=== PATIENT | male | born 1990 | race Caucasian/White ===

== ENCOUNTER 2021-06-01 16:24 | Emergency (ER) | payer OTHER ==
[~2021-06-01] VITALS: Ht 193 cm; Wt 83.9 kg
[~2021-06-01 16:24] MED LIST: CEPH500 PO; CIPR500 PO; METR500 PO; Naprosyn500 MG PO; OMEP40CA12 PO; Phenergan25 M1 PO; Ultram50 MG PO; Veetids 500500 MG PO
[2021-06-01] MEDS ORDERED: Norco 5-325 Ta1 EACH PO (18:28)
[2021-06-01] MEDS ORDERED: CEPH500 PO (18:28)
== END 2021-06-01 18:51 | disposition home or self-care (01) ==
LOC: ER 16:24
DX: S62.633B Displaced fracture of distal phalanx of left middle finger, initial encounter for open fracture (principal); F17.210 Nicotine dependence, cigarettes, uncomplicated; W23.0XXA Caught, crushed, jammed, or pinched between moving objects, initial encounter
CPT/HCPCS: 12001; 73140; 96374-59; 99282-25; A9270; J0690

== ENCOUNTER 2025-04-08 06:59 | Emergency (ER) | payer OTHER ==
[~2025-04-08] VITALS: Ht 193 cm; Wt 75.0 kg
[~2025-04-08 06:59] MED LIST changes: +Norco 5-325 Ta1 EACH PO
[2025-04-08] MEDS ORDERED: PARO10 PO (07:16)
[2025-04-08] MEDS ORDERED: NS 1,000 ML IV SCH ×2 (07:20→08:55)
[2025-04-08] MEDS ORDERED: Ondansetron HCl 2 MG / ML 2ML Vial IV ONE (07:20)
[2025-04-08] MEDS ORDERED: Atropine/Scopalam/Hyoscam/PB 5 ML UDC PO ONE (07:40)
[2025-04-08] MEDS ORDERED: Lidocaine 2% Viscous Soln 15 ML UDC PO ONE (07:40)
[2025-04-08 07:43] LABS: Hemoglobin 19.3 g/dL (13.5-17.5); Mean Corpuscular HGB Conc 34.8 g/dL (31.5-36.5); Mean Corpuscular Volume 79 fL (80-100); NRBC ABSOLUTE 0.00 K/mm3 (0.00-0.02); NRBC Auto 0.0 /100 WBC (0.0-0.2); Platelet Count 201 K/mm3 (150-400); RDW Coefficient Variation 14.6 % (11.7-14.2); RDW Standard Deviation 40.0 fL (35.1-46.3)
[2025-04-08 07:46] LABS: Hematocrit 55.5 % (37.0-53.0)
[2025-04-08 08:03] LABS: BAND PERCENT MAN 17 % (0-8); BASOPHILS ABSOLUTE MAN 0.00 K/mm3 (0.00-0.23); BASOPHILS PERCENT MAN 0 % (0-2); EOSINOPHILS ABSOLUTE MAN 0.00 K/mm3 (0.00-0.68); EOSINOPHILS PERCENT MAN 0 % (0-6); LYMPHOCYTES ABSOLUTE MAN 0.78 K/mm3 (0.84-5.20); LYMPHOCYTES PERCENT MAN 13 % (21-46); MONOCYTES ABSOLUTE MAN 0.42 K/mm3 (0.16-1.47); MONOCYTES PERCENT MAN 7 % (4-13); NEUTROPHILS ABSOLUTE MAN 4.85 K/mm3 (1.96-9.15); SEG NEUTROPHILS PERCENT MAN 63 % (41-73)
[2025-04-08 08:04] LABS: Alanine Aminotransfer (ALT/SGP 32.0 U/L (12-78); Albumin, Blood 3.7 g/dL (3.4-5.0); Albumin/Globulin Ratio 0.8 (0.8-1.8); Anion Gap 15.0 mmol/L (3-11); Aspartate Aminotrans (AST/SGOT 44.0 U/L (12-37); Bilirubin, Total 0.8 mg/dL (0.1-1.0); Blood Urea Nitrogen 16.0 mg/dL (8-24); CO2, Blood 23.0 mmol/L (21-32); Calcium, Blood 8.9 mg/dL (8.5-10.1); Chloride, Blood 98.0 mmol/L (98-108); Creatinine, Blood 0.94 mg/dL (0.60-1.20); Globulin, Blood 4.8 g/dL (2.2-4.0); Glucose, Blood 142.0 mg/dL (70-99); Potassium, Blood 2.8 mmol/L (3.5-5.5); Sodium, Blood 133.0 mmol/L (136-145); Total Protein, Blood 8.5 g/dL (6.4-8.2)
[2025-04-08 09:04] LABS: Influenza A/2009-H1 Not Detected (NOT DETECT); SARS-Cov-2 (COVID-19), BioFire Not Detected (NOT DETECT)
[2025-04-08 09:08] LABS: Source, Urine Clean Catch
[2025-04-08 09:11] LABS: Bilirubin, Urine Neg (Neg); Color, Urine Yellow (P-Yellow); Glucose Qualitative, Urine Neg (Neg); Ketones, Urine Neg (Neg); Leukocyte Esterase, Urine Neg (Neg); Protein, Urine 2+ (Neg); Specific Gravity, Urine 1.025 (1.003-1.022); Urobilinogen, Urine NORM (Normal)
[2025-04-08 09:24] LABS: Red Blood Cells, Urine 0-2 /hpf (0-2); White Blood Cells, Urine 0-2 /hpf (0-5)
[2025-04-08 09:33] LABS: U Amphetamine Screen Not Detected; U Barbituate Screen Not Detected; U Benzodiazapine Screen Not Detected; U Buprenorphine Screen Not Detected; U Cannabinoids Screen DETECTED; U Cocaine Screen Not Detected; U Methadone Screen Not Detected; U Methamphetamine Screen Not Detected; U Opiates Screen Not Detected; U Oxycodone Screen Not Detected; U Phencyclidine Screen Not Detected
[2025-04-08] MEDS ORDERED: Haloperidol Lactate Inj. 5 MG/ML Injection IV ONE (09:50)
[2025-04-08 13:51] LABS: Campylobacter Sp Not Detected (NOT DETECT); E. Coli O157 Not Detected (NOT DETECT); Enteroaggregative E. coli-EAEC Not Detected (NOT DETECT); Enteropathogenic E. coli-EPEC Not Detected (NOT DETECT); Enterotoxigenic E. coli-ETEC Not Detected (NOT DETECT); Salmonella Sp Not Detected (NOT DETECT); Shiga Toxin-prod E. coli-STEC Not Detected (NOT DETECT); Shigella/Enteroin E. coli-EIEC Not Detected (NOT DETECT); Vibrio Sp Not Detected (NOT DETECT)
[2025-04-08 13:55] LABS: Anion Gap 11.0 mmol/L (3-11); Blood Urea Nitrogen 14.0 mg/dL (8-24); CO2, Blood 19.0 mmol/L (21-32); Calcium, Blood 8.1 mg/dL (8.5-10.1); Chloride, Blood 106.0 mmol/L (98-108); Creatinine, Blood 0.49 mg/dL (0.60-1.20); Glucose, Blood 124.0 mg/dL (70-99); Potassium, Blood 3.4 mmol/L (3.5-5.5); Sodium, Blood 133.0 mmol/L (136-145)
[2025-04-08] MEDS ORDERED: ONDA4ODT MM (14:03)
[2025-04-08] MEDS ORDERED: ALINIA PO (14:03)
[2025-04-08 14:08] VITALS: BP 141/75
[2025-04-08] MEDS ORDERED: PRED20 PO (14:32)
[2025-04-08] MEDS ORDERED: K-TAB ER20 ME1 PO (14:32)
== END 2025-04-08 14:58 | disposition home or self-care (01) ==
LOC: ER 06:59
DX: A07.2 Cryptosporidiosis (principal); E86.0 Dehydration; E87.6 Hypokalemia; F17.210 Nicotine dependence, cigarettes, uncomplicated; Z79.899 Other long term (current) drug therapy
CPT/HCPCS: 0202U; 74177; 80048; 80053; 81001; 83690; 85025; 87507; 93005; 93010; A9270; J1630; J2405; J3480; J7030; J7050; Q9967

== ENCOUNTER 2025-04-10 17:02 | Inpatient (IN) | payer OTHER ==
[~2025-04-10] VITALS: Ht 193 cm; Wt 74.6 kg
[~2025-04-10 17:02] MED LIST changes: +ALINIA PO; +K-TAB ER20 ME1 PO; +ONDA4ODT MM; +PARO10 PO; +PRED20 PO
[2025-04-10] MEDS ORDERED: NS 1,000 ML IV SCH ×2 (17:30→20:20)
[2025-04-10] MEDS ORDERED: Pantoprazole Sodium 40 MG Injection IV ONE (19:00)
[2025-04-10] MEDS ORDERED: DiphenhydrAMINE HCl 50 MG/ML 1ML Vial IV ONE (19:05)
[2025-04-10] MEDS ORDERED: NS 1,000 ML BAG IR SCH (19:05)
[2025-04-10 19:34] LABS: Alanine Aminotransfer (ALT/SGP 23.0 U/L (12-78); Albumin, Blood 3.4 g/dL (3.4-5.0); Albumin/Globulin Ratio 0.8 (0.8-1.8); Anion Gap 12.0 mmol/L (3-11); Aspartate Aminotrans (AST/SGOT 28.0 U/L (12-37); Bilirubin, Total 1.0 mg/dL (0.1-1.0); Blood Urea Nitrogen 17.0 mg/dL (8-24); CO2, Blood 18.0 mmol/L (21-32); Calcium, Blood 8.5 mg/dL (8.5-10.1); Chloride, Blood 106.0 mmol/L (98-108); Creatinine, Blood 0.79 mg/dL (0.60-1.20); Globulin, Blood 4.3 g/dL (2.2-4.0); Glucose, Blood 139.0 mg/dL (70-99); Potassium, Blood 3.0 mmol/L (3.5-5.5); Sodium, Blood 133.0 mmol/L (136-145); Total Protein, Blood 7.7 g/dL (6.4-8.2)
[2025-04-10 19:52] LABS: Hematocrit 53.6 % (37.0-53.0); Hemoglobin 18.7 g/dL (13.5-17.5); Mean Corpuscular HGB Conc 34.9 g/dL (31.5-36.5); Mean Corpuscular Volume 77 fL (80-100); NRBC ABSOLUTE 0.16 K/mm3 (0.00-0.02); NRBC Auto 1.4 /100 WBC (0.0-0.2); RDW Coefficient Variation 14.9 % (11.7-14.2); RDW Standard Deviation 39.2 fL (35.1-46.3)
[2025-04-10] MEDS ORDERED: Potassium Chl 10MEQ/Water100ML 100 ML IV SCH (19:55)
[2025-04-10] MEDS ORDERED: Prochlorperazine Edisylate 10 mg Vial IV ONE (20:00)
[2025-04-10 20:02] LABS: pH Blood Venous 7.37 (7.34-7.37)
[2025-04-10 20:03] LABS: BAND PERCENT MAN 16 % (0-8); BASOPHILS ABSOLUTE MAN 0.00 K/mm3 (0.00-0.23); BASOPHILS PERCENT MAN 0 % (0-2); EOSINOPHILS ABSOLUTE MAN 0.00 K/mm3 (0.00-0.68); EOSINOPHILS PERCENT MAN 0 % (0-6); LYMPHOCYTES ABSOLUTE MAN 0.79 K/mm3 (0.84-5.20); LYMPHOCYTES PERCENT MAN 7 % (21-46); MONOCYTES ABSOLUTE MAN 1.47 K/mm3 (0.16-1.47); MONOCYTES PERCENT MAN 13 % (4-13); NEUTROPHILS ABSOLUTE MAN 9.05 K/mm3 (1.96-9.15); SEG NEUTROPHILS PERCENT MAN 64 % (41-73)
[2025-04-10 20:06] LABS: Platelet Count 209 K/mm3 (150-400)
[2025-04-10] MEDS ORDERED: Ondansetron HCl 2 MG / ML 2ML Vial IV PRN (23:30)
[2025-04-11] VITALS (7 sets, daily range): BP systolic 127–153; BP diastolic 63–78
--- NOTE | 2025-04-11 04:41 | NUR ---
NIGHT SUMMARY: PT ADMITTED FROM ER FOR SUPPORTIVE TREATMENT. PT DENIES NAUSEA OR VOMITING THIS SHIFT. IV FLUIDS RUNNING AND ON CLEAR LIQUID DIET. ABLE TO PROGRESS TO REGULAR APPROPRIATE. TOLERATING JUICE AND BROTH. K REPLACED IN ER. STILL HAVING DIARRHEA. SBA IN ROOM. ABLE TO CALL APPROPRIATELY, CALL LIGHT WITHIN REACH, AND BED IN LOW POSITION.
[2025-04-11 05:11] LABS: Hematocrit 45.1 % (37.0-53.0); Hemoglobin 16.0 g/dL (13.5-17.5); Mean Corpuscular HGB Conc 35.5 g/dL (31.5-36.5); Mean Corpuscular Volume 79 fL (80-100); NRBC ABSOLUTE 0.00 K/mm3 (0.00-0.02); NRBC Auto 0.0 /100 WBC (0.0-0.2); Platelet Count 210 K/mm3 (150-400); RDW Coefficient Variation 14.2 % (11.7-14.2); RDW Standard Deviation 40.4 fL (35.1-46.3)
[2025-04-11 05:35] LABS: BAND PERCENT MAN 18 % (0-8); BASOPHILS ABSOLUTE MAN 0.00 K/mm3 (0.00-0.23); BASOPHILS PERCENT MAN 0 % (0-2); EOSINOPHILS ABSOLUTE MAN 0.23 K/mm3 (0.00-0.68); EOSINOPHILS PERCENT MAN 2 % (0-6); LYMPHOCYTES ABSOLUTE MAN 0.81 K/mm3 (0.84-5.20); LYMPHOCYTES PERCENT MAN 7 % (21-46); MONOCYTES ABSOLUTE MAN 2.56 K/mm3 (0.16-1.47); MONOCYTES PERCENT MAN 22 % (4-13); NEUTROPHILS ABSOLUTE MAN 8.05 K/mm3 (1.96-9.15); SEG NEUTROPHILS PERCENT MAN 51 % (41-73)
[2025-04-11 05:45] LABS: Alanine Aminotransfer (ALT/SGP 19.0 U/L (12-78); Albumin, Blood 2.7 g/dL (3.4-5.0); Albumin/Globulin Ratio 0.8 (0.8-1.8); Anion Gap 9.0 mmol/L (3-11); Aspartate Aminotrans (AST/SGOT 26.0 U/L (12-37); Bilirubin, Total 0.7 mg/dL (0.1-1.0); Blood Urea Nitrogen 12.0 mg/dL (8-24); CO2, Blood 21.0 mmol/L (21-32); Calcium, Blood 7.9 mg/dL (8.5-10.1); Chloride, Blood 109.0 mmol/L (98-108); Creatinine, Blood 0.65 mg/dL (0.60-1.20); Globulin, Blood 3.5 g/dL (2.2-4.0); Glucose, Blood 113.0 mg/dL (70-99); Potassium, Blood 3.1 mmol/L (3.5-5.5); Sodium, Blood 136.0 mmol/L (136-145); Total Protein, Blood 6.2 g/dL (6.4-8.2)
[2025-04-11] MEDS ORDERED: Potassium Chl 20MEQ/Water100ML 100 ML IV SCH ×2 (06:35→17:05)
[2025-04-11] MEDS ORDERED: NS 250 ML IV PRN (07:40)
[2025-04-11] MEDS ORDERED: NEOM500 PO (07:50)
[2025-04-11] MEDS ORDERED: Enoxaparin 40 MG/0.4 ML SYR SC SCH (09:00)
--- NOTE | 2025-04-11 15:07 | NUR ---
SUMMARY PT CONTINUES TO HAVE LOOSE STOOLS, THAT HAVE DECREASED IN FREQUENCY. WAS ABLE TO TOLERATE CLEAR LIQUIDS AT BREAKFAST, ADVANCED TO SOFT BITE SIZE AT LUNCH PER DR. DORAN. IV POTASSIUM REPLETED TODAY 60 MEQ TOTAL. IV INFUSION OF LR CONTINUING AT 125 ML/HR PER ORDERS. PT UP INDEPENDENTLY IN ROOM. NSR ON TELE, WITH NO TELE EVENTS. PRN ZOFRAN GIVEN PRIOR TO LUNCH FOR MILD NAUSEA, BUT NO VOMITING.
[2025-04-11 16:18] LABS: Anion Gap 7.0 mmol/L (3-11); Blood Urea Nitrogen 11.0 mg/dL (8-24); CO2, Blood 22.0 mmol/L (21-32); Calcium, Blood 8.1 mg/dL (8.5-10.1); Chloride, Blood 108.0 mmol/L (98-108); Creatinine, Blood 0.63 mg/dL (0.60-1.20); Glucose, Blood 98.0 mg/dL (70-99); Potassium, Blood 3.0 mmol/L (3.5-5.5); Sodium, Blood 134.0 mmol/L (136-145)
[2025-04-11 19:27] LABS: Alanine Aminotransfer (ALT/SGP 20.0 U/L (12-78); Albumin, Blood 2.7 g/dL (3.4-5.0); Albumin/Globulin Ratio 0.8 (0.8-1.8); Anion Gap 2.0 mmol/L (3-11); Aspartate Aminotrans (AST/SGOT 29.0 U/L (12-37); Bilirubin, Total 0.8 mg/dL (0.1-1.0); Blood Urea Nitrogen 11.0 mg/dL (8-24); CO2, Blood 22.0 mmol/L (21-32); Calcium, Blood 8.1 mg/dL (8.5-10.1); Chloride, Blood 109.0 mmol/L (98-108); Creatinine, Blood 0.64 mg/dL (0.60-1.20); Globulin, Blood 3.4 g/dL (2.2-4.0); Glucose, Blood 92.0 mg/dL (70-99); Potassium, Blood 2.9 mmol/L (3.5-5.5); Sodium, Blood 130.0 mmol/L (136-145); Total Protein, Blood 6.1 g/dL (6.4-8.2)
[2025-04-12 02:24] LABS: Hematocrit 44.1 % (37.0-53.0); Hemoglobin 15.5 g/dL (13.5-17.5); Mean Corpuscular HGB Conc 35.1 g/dL (31.5-36.5); Mean Corpuscular Volume 80 fL (80-100); NRBC ABSOLUTE 0.00 K/mm3 (0.00-0.02); NRBC Auto 0.0 /100 WBC (0.0-0.2); Platelet Count 251 K/mm3 (150-400); RDW Coefficient Variation 14.5 % (11.7-14.2); RDW Standard Deviation 41.9 fL (35.1-46.3)
[2025-04-12 02:41] LABS: Magnesium, Blood 1.7 mg/dL (1.6-2.4)
[2025-04-12 02:52] LABS: Anion Gap 8.0 mmol/L (3-11); Blood Urea Nitrogen 10.0 mg/dL (8-24); CO2, Blood 22.0 mmol/L (21-32); Calcium, Blood 7.7 mg/dL (8.5-10.1); Chloride, Blood 110.0 mmol/L (98-108); Creatinine, Blood 0.68 mg/dL (0.60-1.20); Glucose, Blood 98.0 mg/dL (70-99); Phosphorus, Blood 0.9 mg/dL (2.5-4.9); Potassium, Blood 3.5 mmol/L (3.5-5.5); Sodium, Blood 136.0 mmol/L (136-145)
--- NOTE | 2025-04-12 02:55 | NUR ---
ACRITICAL PPO4 NOTED BY LAB AND CONVEYED TO . AWAITING ORDERS
[2025-04-12 03:16] LABS: BAND PERCENT MAN 12 % (0-8); BASOPHILS ABSOLUTE MAN 0.00 K/mm3 (0.00-0.23); BASOPHILS PERCENT MAN 0 % (0-2); EOSINOPHILS ABSOLUTE MAN 0.18 K/mm3 (0.00-0.68); EOSINOPHILS PERCENT MAN 2 % (0-6); LYMPHOCYTES % ATYPICAL MANUAL 1 % (0-0); LYMPHOCYTES ABSOLUTE MAN 1.68 K/mm3 (0.84-5.20); LYMPHOCYTES PERCENT MAN 17 % (21-46); METAMYELOCYTE ABSOLUTE MAN 0.09 K/mm3 (0.00-0.00); METAMYELOCYTE PERCENT MAN 1 % (0-0); MONOCYTES ABSOLUTE MAN 1.02 K/mm3 (0.16-1.47); MONOCYTES PERCENT MAN 11 % (4-13); MYELOCYTE ABSOLUTE MAN 0.09 K/mm3 (0.00-0.00); MYELOCYTE PERCENT MAN 1 % (0-0); NEUTROPHILS ABSOLUTE MAN 6.25 K/mm3 (1.96-9.15); SEG NEUTROPHILS PERCENT MAN 55 % (41-73)
[2025-04-12] MEDS ORDERED: Potassium Phosphate Dibasic 30 MM in Dextrose 5% 500 ML IV ONE (03:30)
[2025-04-12 03:43] VITALS: BP 119/67
--- NOTE | 2025-04-12 05:06 | NUR ---
PT A&O X4, VS WNL, REMAINS ON TELE IN NSR IN 70'S. PT WITH ABOVE AVERAGE STOOL OUTPUT. TOLERATES A SOFT DIET, HAS HAD ELECTROLYTE DEPLETION WITH IVPB REPLACEMENT OF POTASSIUM AND PHOSPHORUS THIS SHIFT. USES CALL SYSTEM APPROPRIATELY, AND STARTED FLUID RESTRICTION AT MIDNIGHT. PLAN TO D/C HOME WITH .
[2025-04-12] MEDS ORDERED: Magnesium Sulf 2 GM/Water 50ML 50 ML IV ONE (06:25)
[2025-04-12 07:26] VITALS: BP 119/82
[2025-04-12] MEDS ORDERED: Potassium Phos/Sodium Phos 250 MG PACK PO SCH (08:00)
[2025-04-12] MEDS ORDERED: TIZA4 PO ×2 (08:21)
[2025-04-12] MEDS ORDERED: Sodium Phosphate 20 MM in Dextrose 5% 500 ML IV SCH (09:00)
[2025-04-12 09:45] LABS: Alanine Aminotransfer (ALT/SGP 18.0 U/L (12-78); Albumin, Blood 2.7 g/dL (3.4-5.0); Albumin/Globulin Ratio 0.8 (0.8-1.8); Anion Gap 8.0 mmol/L (3-11); Aspartate Aminotrans (AST/SGOT 22.0 U/L (12-37); Bilirubin, Total 0.6 mg/dL (0.1-1.0); Blood Urea Nitrogen 8.0 mg/dL (8-24); CO2, Blood 21.0 mmol/L (21-32); Calcium, Blood 7.6 mg/dL (8.5-10.1); Chloride, Blood 108.0 mmol/L (98-108); Creatinine, Blood 0.52 mg/dL (0.60-1.20); Globulin, Blood 3.2 g/dL (2.2-4.0); Glucose, Blood 110.0 mg/dL (70-99); Magnesium, Blood 2.5 mg/dL (1.6-2.4); Phosphorus, Blood 2.6 mg/dL (2.5-4.9); Potassium, Blood 3.2 mmol/L (3.5-5.5); Sodium, Blood 134.0 mmol/L (136-145); Total Protein, Blood 5.9 g/dL (6.4-8.2)
[2025-04-12 11:43] VITALS: BP 135/68
[2025-04-12 12:51] LABS: Anion Gap 8.0 mmol/L (3-11); Blood Urea Nitrogen 8.0 mg/dL (8-24); CO2, Blood 21.0 mmol/L (21-32); Calcium, Blood 7.9 mg/dL (8.5-10.1); Chloride, Blood 108.0 mmol/L (98-108); Creatinine, Blood 0.51 mg/dL (0.60-1.20); Glucose, Blood 111.0 mg/dL (70-99); Potassium, Blood 2.9 mmol/L (3.5-5.5); Sodium, Blood 134.0 mmol/L (136-145)
[2025-04-12] MEDS ORDERED: ONDA4 PO (15:30)
[2025-04-12] MEDS ORDERED: POTCHL20ER PO ×2 (15:37)
[2025-04-12 15:46] VITALS: BP 143/67
[2025-04-12] MEDS ORDERED: PHOS-NaK PO ×2 (16:05)
--- NOTE | 2025-04-12 16:42 | NUR ---
DISCHARGE NOTE: A&OX4 PRIOR TO D/C. PT EDUCATION AND INSTRUCTIONS COMMUNICATED WITH PT. IVs AND TELE REMOVED. PT GATHERED PERSONAL BELONGINGS AND GOT SELF DRESSED TO LEAVE WITH ASSISTANCE FROM HIS SPOUSE. DENIED STAFF ESCORT AND AMBULATED SELF OUT OF BUILDING. VSS PRIOR TO LEAVING. MEDICATIONS FAXED TO PT PREFERED PHARMACY.
[2025-04-12 19:37] LABS: HIV 1,2 COMBO ANTIGEN/ANTIBODY Negative (Negative)
== END 2025-04-12 16:35 | disposition home or self-care (01) | DRG 372 ==
LOC: ER 17:02 → MEDS 17:03
PROVIDERS: Emergency Medicine; Student in an Organized Health Care Education/Training Program; ADMIT Student in an Organized Health Care Education/Training Program
DX: A07.2 Cryptosporidiosis (principal); E87.1 Hypo-osmolality and hyponatremia; N17.9 Acute kidney failure, unspecified; E86.0 Dehydration; E87.6 Hypokalemia; E86.1 Hypovolemia; F17.210 Nicotine dependence, cigarettes, uncomplicated; F32.9 Major depressive disorder, single episode, unspecified; Z79.52 Long term (current) use of systemic steroids; Z79.899 Other long term (current) drug therapy
CPT/HCPCS: 0202U; 36415; 74177; 80048; 80053; 81001; 82803; 83605; 83690; 83735; 84100; 85025; 87389; 87507; 93005; 93010; 96360; 96361; 96365; 96365-59; 96366; 96372; 96375; 96376; 99284-25; 99285-25; A9270; G0378; J0780; J1200; J1630; J1650; J1790; J2405; J2470; J3475; J3480; J7030; J7050; J7060; J7120; Q9967

== ENCOUNTER 2025-04-13 22:44 | Inpatient (IN) | payer OTHER ==
[~2025-04-13] VITALS: Ht 193 cm; Wt 74.2 kg
[~2025-04-13 22:44] MED LIST changes: +NEOM500 PO; +ONDA4 PO; +PHOS-NaK PO; +POTCHL20ER PO; +TIZA4 PO
[2025-04-14 00:13] LABS: Hematocrit 53.2 % (37.0-53.0); Hemoglobin 17.9 g/dL (13.5-17.5); Mean Corpuscular HGB Conc 33.6 g/dL (31.5-36.5); Mean Corpuscular Volume 79 fL (80-100); NRBC ABSOLUTE 0.00 K/mm3 (0.00-0.02); NRBC Auto 0.0 /100 WBC (0.0-0.2); Platelet Count 302 K/mm3 (150-400); RDW Coefficient Variation 14.8 % (11.7-14.2); RDW Standard Deviation 41.2 fL (35.1-46.3)
[2025-04-14] MEDS ORDERED: Pantoprazole Sodium 40 MG Injection IV ONE (00:20)
[2025-04-14] MEDS ORDERED: Metoclopramide HCl 5MG / ML 2ML Vial IV ONE (00:20)
[2025-04-14] MEDS ORDERED: DiphenhydrAMINE HCl 50 MG/ML 1ML Vial IV ONE (00:20)
[2025-04-14 00:28] LABS: Alanine Aminotransfer (ALT/SGP 26.0 U/L (12-78); Albumin, Blood 3.3 g/dL (3.4-5.0); Albumin/Globulin Ratio 0.8 (0.8-1.8); Anion Gap 9.0 mmol/L (3-11); Aspartate Aminotrans (AST/SGOT 24.0 U/L (12-37); Bilirubin, Total 0.5 mg/dL (0.1-1.0); Blood Urea Nitrogen 7.0 mg/dL (8-24); CO2, Blood 18.0 mmol/L (21-32); Calcium, Blood 8.6 mg/dL (8.5-10.1); Chloride, Blood 109.0 mmol/L (98-108); Creatinine, Blood 0.8 mg/dL (0.60-1.20); Globulin, Blood 4.4 g/dL (2.2-4.0); Glucose, Blood 129.0 mg/dL (70-99); Potassium, Blood 2.7 mmol/L (3.5-5.5); Sodium, Blood 133.0 mmol/L (136-145); Total Protein, Blood 7.7 g/dL (6.4-8.2)
[2025-04-14 00:49] LABS: BAND PERCENT MAN 18 % (0-8); BASOPHILS ABSOLUTE MAN 0.00 K/mm3 (0.00-0.23); BASOPHILS PERCENT MAN 0 % (0-2); EOSINOPHILS ABSOLUTE MAN 0.20 K/mm3 (0.00-0.68); EOSINOPHILS PERCENT MAN 1 % (0-6); LYMPHOCYTES ABSOLUTE MAN 1.03 K/mm3 (0.84-5.20); LYMPHOCYTES PERCENT MAN 5 % (21-46); MONOCYTES ABSOLUTE MAN 1.24 K/mm3 (0.16-1.47); MONOCYTES PERCENT MAN 6 % (4-13); NEUTROPHILS ABSOLUTE MAN 18.26 K/mm3 (1.96-9.15); SEG NEUTROPHILS PERCENT MAN 70 % (41-73)
[2025-04-14] MEDS ORDERED: Ondansetron HCl 2 MG / ML 2ML Vial IV PRN ×2 (02:05→02:55)
[2025-04-14] MEDS ORDERED: D5W-NS 1,000 ML IV SCH (03:00)
[2025-04-14 04:56] VITALS: BP 133/68
[2025-04-14 06:11] LABS: BASOPHILS ABSOLUTE AUTO 0.07 K/mm3 (0.00-0.23); BASOPHILS PERCENT AUTO 1 % (0-2); EOSINOPHILS ABSOLUTE AUTO 0.18 K/mm3 (0.00-0.68); EOSINOPHILS PERCENT AUTO 1 % (0-6); Hematocrit 45.7 % (37.0-53.0); Hemoglobin 15.9 g/dL (13.5-17.5); IMMATURE GRAN ABSOLUTE AUTO 0.15 K/mm3 (0.00-0.10); IMMATURE GRAN PERCENT AUTO 1 % (0-1); LYMPHOCYTES ABSOLUTE AUTO 1.46 K/mm3 (0.84-5.20); LYMPHOCYTES PERCENT AUTO 10 % (21-46); MONOCYTES ABSOLUTE AUTO 1.62 K/mm3 (0.16-1.47); MONOCYTES PERCENT AUTO 11 % (4-13); Mean Corpuscular HGB Conc 34.8 g/dL (31.5-36.5); Mean Corpuscular Volume 79 fL (80-100); NEUTROPHILS ABSOLUTE AUTO 11.39 K/mm3 (1.96-9.15); NEUTROPHILS PERCENT AUTO 77 % (41-73); NRBC ABSOLUTE 0.00 K/mm3 (0.00-0.02); NRBC Auto 0.0 /100 WBC (0.0-0.2); Platelet Count 235 K/mm3 (150-400); RDW Coefficient Variation 14.4 % (11.7-14.2); RDW Standard Deviation 41.0 fL (35.1-46.3)
[2025-04-14 06:31] LABS: Anion Gap 10.0 mmol/L (3-11); Blood Urea Nitrogen 4.0 mg/dL (8-24); CO2, Blood 16.0 mmol/L (21-32); Calcium, Blood 7.9 mg/dL (8.5-10.1); Chloride, Blood 109.0 mmol/L (98-108); Creatinine, Blood 0.64 mg/dL (0.60-1.20); Glucose, Blood 97.0 mg/dL (70-99); Potassium, Blood 2.9 mmol/L (3.5-5.5); Sodium, Blood 132.0 mmol/L (136-145)
--- NOTE | 2025-04-14 07:19 | NUR ---
ADMIT NOTE/SHIFT SUMMARY REPORT WAS RECEIVED FROM THE ER AND PT WAS BROUGHT DOWN IN THE W/C AND TRANSFERRED TO HIS BED IN ROOM 362. PT ALERT ORIENTED X 4 AD ABNER IN ROOM. HE WAS ORIENTED TO HIS ROM AND STAFF. HE C/O NAUSEA BUT NO EMESIS SINCE ARRIVAL WENT OVER HIS HOME MEDICATIONS. NO SKIN CONCERNS. HE GOT POTASSIUM AND IS GETTING LR AT 200. HIS IS HERE AT BEDSIDE. REMAINS ON TELEMETRY AT [facility]. VSS ON RA. POTASSIUM LEVEL WAS 2.7 AND IS 2.5 THIS AM I PASSED ON TO THE AM SHIFT THAT HE WILL NEED MORE POTASSIUM. RESTING IN BED AT THIS TIME WITH CALL LIGHT IN REACH
[2025-04-14 07:30] VITALS: BP 135/70
--- NOTE | 2025-04-14 07:49 | NUR ---
AM NOTIFICATION NOTE: PER NOC REPORTS PATIENT RECEIVED OT DOSE IV POTASSIUM. PATIENT AM POTASSIUM LAB RESULT HAS IMPROVE, BUT STILL IN LOW SIDE. NOTIFIED DR. MADDEN REGARDING THIS CONCERN. PER DR. MADDEN HE WILL ORDER PO POTASSIUM THIS AM.
[2025-04-14] MEDS ORDERED: Enoxaparin 40 MG/0.4 ML SYR SC SCH ×2 (09:00)
[2025-04-14 12:00] VITALS: BP 137/76
[2025-04-14] MEDS ORDERED: NS 1,000 ML IV SCH (12:00)
[2025-04-14] MEDS ORDERED: Diphenoxylat/Atrop 2.5 / 0.025MG 1 Tab PO PRN (12:00)
[2025-04-14 16:28] VITALS: BP 139/71
--- NOTE | 2025-04-14 17:36 | NUR ---
SHIFT SUMMARY: PATIENT A/OX4, CALM, PLEASANT AND COOPERATIVE c CARE. PATIENT DENIES CP/PRESSURE, SOB AND DIZZINESS. PATIENT ON TELE, SR HR IN THE HIGH 60'S-70'S BPM. PATIENT MEDICATED X1 FOR NAUSEA PER EMAR c GOOD EFFECT. PATIENT HAD 5 LIQUID STOOL, FAIR APPETITE, CONTINENT OF BLADDER AND AMBULATES TO BATHROOM c SBA. PATIENT RECEIVED ONE DOSE OF LOMOTIL FOR DIARRHEA PER EMAR. PATIENT RESTING IN BED ON/OFF T/O SHIFT c SPOUSE AT BEDSIDE. VITAL SIGNS REVIEWED. CALL LIGHT IN REACH.
[2025-04-14 19:57] VITALS: BP 132/68
[2025-04-14] MEDS ORDERED: Prochlorperazine Edisylate 10 mg Vial IV PRN (21:10)
[2025-04-15 00:34] VITALS: BP 126/51
--- NOTE | 2025-04-15 01:31 | NUR ---
Reviewed tele strip: prolong QTc QTc prolongation noted on 1800 strip which is new that I know of. Patient already received zofran x 1 during my shift. Called and notified. Also notified Dr. Osman of recently having had apnNADYA Rios order some compazine from Dr. Jules for the patient as a secondary nausea medication. Dr. Sathish Osman is aware of patient's admission. Received V.O. to give compazine instead of zofran for now and obtain an EKG to re-assess cardiac status and monitor QTc. Informed Dr. Osman of length of QTc and patient's current condition. VS taken, WDL. Patient informed of indication for EKG, EKG entered and obtained by Ja Stiles RN.
[2025-04-15 06:28] VITALS: BP 129/58
[2025-04-15 07:18] VITALS: BP 132/63
--- NOTE | 2025-04-15 07:29 | NUR ---
"Shift Summary AOx4. Ad romeo. Able to make needs known. Patient had some abdominal pain and nausea early this shift so he was medicated with tylenol and zofran, also requested for anti-diarrheal. Patient then became febrile with temp at 100.4. Upon review of tele strip, patient noted to have prolong QTc as followed with initial one at the start of shift and the last number showing resolution of QTc (0.53 | 0.51 | 0.439 | 0.41). To treat the fever, ice packs given to cool, heavier blankets removed, and room temperature turned colder. Once fever broke, patient was more awake and participating in shift assessment without hesitation. at the bedside throughout the night. Per patient, diarrhea has been improving with the antidiarrheals he has been getting. Last liter of NS infusing. Medicated w/ compazine at shift change. Call light in reach."
[2025-04-15 09:03] LABS: Hematocrit 43.5 % (37.0-53.0); Hemoglobin 15.1 g/dL (13.5-17.5); Mean Corpuscular HGB Conc 34.7 g/dL (31.5-36.5); Mean Corpuscular Volume 77 fL (80-100); NRBC ABSOLUTE 0.00 K/mm3 (0.00-0.02); NRBC Auto 0.0 /100 WBC (0.0-0.2); Platelet Count 246 K/mm3 (150-400); RDW Coefficient Variation 14.3 % (11.7-14.2); RDW Standard Deviation 39.9 fL (35.1-46.3)
[2025-04-15 09:17] LABS: Anion Gap 10.0 mmol/L (3-11); Blood Urea Nitrogen 4.0 mg/dL (8-24); CO2, Blood 21.0 mmol/L (21-32); Calcium, Blood 7.9 mg/dL (8.5-10.1); Chloride, Blood 107.0 mmol/L (98-108); Creatinine, Blood 0.59 mg/dL (0.60-1.20); Glucose, Blood 111.0 mg/dL (70-99); Potassium, Blood 2.6 mmol/L (3.5-5.5); Sodium, Blood 135.0 mmol/L (136-145)
[2025-04-15 11:41] VITALS: BP 137/66
[2025-04-15] MEDS ORDERED: K-Dur20 MEQ PO ×2 (15:58)
[2025-04-15] MEDS ORDERED: NITAZOXANIDE500 MG PO ×2 (16:01)
--- NOTE | 2025-04-15 17:16 | NUR ---
SHIFT/DISCHARGE SUMMARY: PATIENT A/OX4, PLEASANT AND COOPERATIVE c CARE. PATIENT DENIES CP/PRESURE, SOB, N/V AND DIZZINESS. PATIENT ON TELE, SR HR IN THE HIGH 60-70'S BPM c 0.40 PROLONG QT. PATIENT REPORTS FEELING BETTER TODAY, ABLE TO KEEP HIS FOOD DOWN AND HAD 3 SOFT BROWN BM. PATIENT REPEAT POTASSIUM AT 1400 WAS 2.8. PATIENT REQUESTED TO BE DISCHARGE HOME, DESPITE EDUCATING ON LOW POTASSIUM LEVEL AND RISK OF GOING HOME. PATIENT VERBALIZED UNDERSTANDING, STATED "I TOTALLY UNDERSTAND, BUT I CANNOT STAY I HAVE A COURT HEARING APPOINTMENT TOMORROW AT 1000. I CANNOT MISS THAT HEARING." NOTIFIED DR. MADDEN c PATIENT REQUEST, HE ORDERED 40 MEQ POTASSIUM PO AND GIVEN TO PATIENT. PATIENT RECEIVED A TOTAL OF 80 MEQ POTASSIUM PO THIS SHIFT. PATIENT DENIES NEW CONCERN OR COMPLAINTS THIS SHIFT. PATIENT RECEIVED SCHEDULED MEDS PER EMAR. VITAL SIGNS REVIEWED. PIV DC'D. PATIENT DISCHARGE HOME. DISCHARGE INSTRUCTIONS PACKET GIVEN TO PATIENT. PATIENT EDUCATED ON ADMITTING DX'S OF GASTROINTERITIS c HYPOKALEMIA, S/S, TX, NEW RX AND TO F/U c PCP. PATIENT VERBALIZED UNDERSTANDING AND NO FURTHER QUESTIONS. RX WAS FAXED TO PATIENT PREFERRED PHARMACY-[facility] IN [place]. ALL PERSONAL BELONGINGS WERE SENT HOME c PATIENT. PATIENT LEFT THE ROOM AT 1640, TRANSPORTED VIA BY CHASIDY MCQUEEN TO PATIENT ENTRANCE.
[2025-04-16 09:54] LABS: DEAMIDATED GLIADIN PEPTIDE,IGA <0.72 FLU (0.00-4.99); TISSUE TRANSGLUTAMINAS TTG,IGA <1.02 FLU (0.00-4.99); TISSUE TRANSGLUTAMINASE AB,IGG <0.82 FLU (0.00-4.99)
[2025-04-16 21:45] LABS: ENDOMYSIAL ANTIBODY, IGA TITER <1:10 (<1:10)
== END 2025-04-15 17:01 | disposition home or self-care (01) | DRG 372 ==
LOC: ER 22:44 → MEDS 22:45
PROVIDERS: Internal Medicine; Student in an Organized Health Care Education/Training Program; ADMIT Student in an Organized Health Care Education/Training Program
DX: A07.2 Cryptosporidiosis (principal); E87.1 Hypo-osmolality and hyponatremia; E87.6 Hypokalemia; F19.90 Other psychoactive substance use, unspecified, uncomplicated; F32.9 Major depressive disorder, single episode, unspecified; F17.210 Nicotine dependence, cigarettes, uncomplicated; D50.9 Iron deficiency anemia, unspecified; D72.829 Elevated white blood cell count, unspecified; E86.0 Dehydration; Z79.899 Other long term (current) drug therapy; Z79.891 Long term (current) use of opiate analgesic; Z79.2 Long term (current) use of antibiotics; Z79.52 Long term (current) use of systemic steroids
CPT/HCPCS: 36415; 80048; 80053; 82784; 83516; 83605; 83690; 83735; 84132; 85025; 85027; 86231; 86258; 86364; 93005; 93010; 96361; 96374; 96375; 99284; A9270; G0378; J0780; J1200; J1650; J2405; J2470; J2765; J3480; J7030; J7050; J7070; J7120

== ENCOUNTER 2025-04-19 14:07 | Observation (INO) | payer OTHER ==
[~2025-04-19] VITALS: Ht 193 cm; Wt 70.3 kg
[~2025-04-19 14:07] MED LIST changes: +K-Dur20 MEQ PO; +NITAZOXANIDE500 MG PO
[2025-04-19] MEDS ORDERED: Potassium Chl 20MEQ/Water100ML 100 ML IV ONE (14:30)
[2025-04-19] MEDS ORDERED: NS 1,000 ML IV SCH ×2 (14:30→19:35)
[2025-04-19] MEDS ORDERED: Ondansetron HCl 2 MG / ML 2ML Vial IV PRN (19:35)
[2025-04-19] MEDS ORDERED: NS 1,000 ML IV ONE (19:54)
[2025-04-19] MEDS ORDERED: Metoclopramide HCl 5MG / ML 2ML Vial IV ONE (20:00)
[2025-04-19] MEDS ORDERED: ONDA4 PO (21:32)
[2025-04-19 21:37] VITALS: BP 115/74
[2025-04-19] MEDS ORDERED: ALINIA PO (23:30)
[2025-04-19] MEDS ORDERED: NITAZOXANIDE 500 MG TAB PO SCH (23:55)
[2025-04-20 01:10] VITALS: BP 134/70
[2025-04-20 01:41] LABS: Anion Gap 8.0 mmol/L (3-11); Blood Urea Nitrogen 8.0 mg/dL (8-24); CO2, Blood 24.0 mmol/L (21-32); Calcium, Blood 7.3 mg/dL (8.5-10.1); Chloride, Blood 110.0 mmol/L (98-108); Creatinine, Blood 0.49 mg/dL (0.60-1.20); Glucose, Blood 120.0 mg/dL (70-99); Potassium, Blood 3.1 mmol/L (3.5-5.5); Sodium, Blood 139.0 mmol/L (136-145)
[2025-04-20] MEDS ORDERED: Potassium Chloride 10 Meq Tablet SA PO ONE (04:10)
[2025-04-20 05:03] VITALS: BP 134/63
--- NOTE | 2025-04-20 05:58 | NUR ---
Shift Summary Pt admitted to this unit from ED for hypokalemia. 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 Pt has had diahrrea since the infection over two weeks ago along with significant nausea and vomiting. In this unit he has felt nauseous but has had no emesis. Pt reports taking PO potassium at home but it's not working well as his potassium was 2.6 on admit. He was unable to tolerate PO potassium in the ED so they gave one bag of 20 MEQ. He was only able to drink one cup of 20 meq liquid potassium here d/t the bad taste, I called the hospitalist and got it switched to tablets. Administration was very late on his potassium orders b/c he was feeling too nauseous on arrival to take any potassium. After the IV potassium infused I called the lab to re-draw BMP per Dr. Cobian's order and his potassium was up to 3.1. Pt is AOx4, independent in the room, no c/o of pain.
[2025-04-20 07:18] VITALS: BP 125/66
[2025-04-20] MEDS ORDERED: Enoxaparin 40 MG/0.4 ML SYR SC SCH (09:00)
[2025-04-20 09:03] LABS: Anion Gap 6.0 mmol/L (3-11); Blood Urea Nitrogen 7.0 mg/dL (8-24); CO2, Blood 28.0 mmol/L (21-32); Calcium, Blood 7.9 mg/dL (8.5-10.1); Chloride, Blood 108.0 mmol/L (98-108); Creatinine, Blood 0.53 mg/dL (0.60-1.20); Glucose, Blood 108.0 mg/dL (70-99); Magnesium, Blood 1.7 mg/dL (1.6-2.4); Potassium, Blood 3.1 mmol/L (3.5-5.5); Sodium, Blood 139.0 mmol/L (136-145)
[2025-04-20 11:21] VITALS: BP 127/69
--- NOTE | 2025-04-20 12:15 | NUR ---
SHIFT/DISCHARGE SUMMARY: PATIENT A/OX4, PLEASANT AND COOPERATIVE c CARE. PATIENT DENIES CP/PRESSURE, SOB, N/V AND DIZZINESS. PATIENT ON TELE, JUNCTIONAL RHYTHM HR IN THE 60'S BPM. PATIENT REPORTS TOLERATING ORAL INTAKE WELL AND HAD 1 BROWN SOFT BM THIS SHIFT. PATIENT RECEIVED SCHEDULED MEDS PER EMAR. PATIENT REQUESTING TO GO HOME SINCE BEGINNING OF SHIFT. PER PATIENT "MY SYMPTOMS HAS IMPROVED SINCE I ADMITTED HERE AND I WOULD LIKE TO GO HOME TODAY." NOTIFIED DR. MARYANNE casarez PATIENT REQUEST DURING AM ROUNDING. PATIENT EDUCATED ON ADMITTING DX'S OF HYPOKALEMIA, REPEAT POTASSIUM LAB 3.1. PATIENT VERBALIZED UNDERSTANDING AND STILL WOULD LIKE BE DISCHARGE. PIV DC'D BY BETSEY UMAÑA. PATIENT DISCHARGE HOME. DISCHARGE INSTRUCTIONS PACKET GIVEN TO PATIENT. PATIENT EDUCATED ON ADMITTING DX'S OF HYPOKALEMIA, S/S, TX, REPEAT POTASSIUM LAB DRAWN, NEW RX, LIST OF FOOD HIGH IN POTASSIUM CONTENTS, AND TO F/U c PCP. PATIENT VERBALIZED UNDERSTANDING AND NO FURTHER QUESTIONS. RX WAS FAXED TO PATIENT PREFERRED PHARMACY-[facility] IN [place]. ALL PERSONAL BELONGINGS WERE SENT c PATIENT. PATIENT DECLINE WC TRANSPORT AND REQUESTING TO WALK ACCOMPANIED BY SPOUSE.
== END 2025-04-20 12:19 | disposition home or self-care (01) ==
LOC: ER 14:07 → MEDS 19:35 → ENPENDDIS 04-20 10:34 → MEDS 04-20 12:19
PROVIDERS: ADMIT Student in an Organized Health Care Education/Training Program
DX: E87.6 Hypokalemia (principal); A07.2 Cryptosporidiosis; F32.9 Major depressive disorder, single episode, unspecified; F17.210 Nicotine dependence, cigarettes, uncomplicated; Z79.899 Other long term (current) drug therapy
CPT/HCPCS: 36415; 80048; 80053; 80061; 82607; 82728; 82746; 83540; 83550; 83735; 84132; 85025; 93005; 93010; 96365; 96366; 96375; 96376; 99284-25; A9270; G0378; J2405; J2765; J3480; J7030; J7050